=== PATIENT | female | born 1985 | race Caucasian/White ===

== ENCOUNTER → 2023-12-30 | Outpatient (REF) | payer SELFPAY ==
[2023-12-30 19:45] LABS: FERRITIN 4.4 NG/ML (7.3-270.7)
[2023-12-30 19:46] LABS: FOLATE 6.6 NG/ML (>5.4)
[2023-12-30 19:52] LABS: PERCENT SATURATION 7.1 % (13.2-45.0)
== END ==
LOC: M LAB REF 17:29
PROVIDERS: ATTEND Family Medicine
DX: D64.9 Anemia, unspecified (principal)

== ENCOUNTER → 2024-06-29 | Outpatient (REF) | payer OTHER ==
[2024-06-30 14:28] LABS: PERCENT SATURATION 7.2 % (13.2-45.0)
[2024-06-30 14:31] LABS: FERRITIN 3.8 NG/ML (7.3-270.7)
== END ==
LOC: M LAB REF 12:42
PROVIDERS: ATTEND Family Medicine
DX: D64.9 Anemia, unspecified (principal)

== ENCOUNTER → 2025-01-26 | Outpatient (CLI) | payer OTHER | LOC: M RAD 15:52 | PROVIDERS: ATTEND Family Medicine | DX: N84.1 Polyp of cervix uteri (principal); N88.8 Other specified noninflammatory disorders of cervix uteri ==